=== PATIENT | male | born 1985 | race Caucasian/White ===

== ENCOUNTER 2022-10-01 20:37 | Emergency (ER) | payer OTHER ==
[~2022-10-01] VITALS: Ht 182.9 cm; Wt 110.5 kg
[2022-10-01] MEDS ORDERED: MELATONIN1 M2 PO (21:17)
[2022-10-01] MEDS ORDERED: KEPPRA1000 MG PO (21:17)
== END 2022-10-01 22:33 | disposition home or self-care (01) ==
LOC: ED 20:37
DX: S02.2XXA Fracture of nasal bones, initial encounter for closed fracture (principal); W50.0XXA Accidental hit or strike by another person, initial encounter
CPT/HCPCS: 70450; 70486; 96372; 99284-25; J1885

== ENCOUNTER 2024-03-17 15:44 | Emergency (ER) | payer OTHER ==
[~2024-03-17] VITALS: Ht 182.9 cm; Wt 70.6 kg
[~2024-03-17 15:44] MED LIST: KEPPRA1000 MG PO; MELATONIN1 M2 PO
[2024-03-17] MEDS ORDERED: HYDROCODONE/ACETA 7.5/325 TAB PO ONE (18:15)
[2024-03-17] MEDS ORDERED: HYDROCODON-ACE1 EA11 PO (18:30)
[2024-03-17 18:49] VITALS: BP 135/75
== END 2024-03-17 18:49 | disposition home or self-care (01) ==
LOC: ED 15:44
DX: S52.121A Displaced fracture of head of right radius, initial encounter for closed fracture (principal); W18.30XA Fall on same level, unspecified, initial encounter; Y93.67 Activity, basketball
CPT/HCPCS: 73060; 73080; 73130; A9270